=== PATIENT | female | born 1965 | race Native Hawaiian/Other Pacific Islander ===

== ENCOUNTER 2019-11-28 21:15 | Emergency (ER) | payer OTHER ==
[~2019-11-28] VITALS: Ht 162.6 cm; Wt 104.3 kg
[2019-11-28 21:36] LABS: PLATELET COUNT 273 K/uL (152-353)
[2019-11-28 21:41] LABS: POTASSIUM 3.9 mmol/L (3.6-5.2)
[2019-11-28 22:24] VITALS: BP 125/67; TEMP 98.4
[2019-11-29] MEDS ORDERED: TYLENOL325 MG PO (02:11)
[2019-11-29] MEDS ORDERED: AMLODIPINE BESYLATE PO (02:11)
[2019-11-29] MEDS ORDERED: ANBESOL MT (02:12)
[2019-11-29] MEDS ORDERED: ANTACID & ANTIG1 SUS PO (02:13)
[2019-11-29] MEDS ORDERED: ATOR20TA2 PO (02:14)
[2019-11-29] MEDS ORDERED: ASCORBIC ACD500 MG PO (02:14)
[2019-11-29] MEDS ORDERED: BASAGLAR K100 UNIT/M SC (02:15)
[2019-11-29] MEDS ORDERED: DIPH25CA90 PO (02:16)
[2019-11-29] MEDS ORDERED: DOCU100C10 PO (02:16)
[2019-11-29] MEDS ORDERED: IPRAAER INH (02:17)
[2019-11-29] MEDS ORDERED: DOXA2TAB PO (02:18)
[2019-11-29] MEDS ORDERED: DIVA500T2 PO (02:18)
[2019-11-29] MEDS ORDERED: TRULICITY1.5 MG/0.5 SC (02:19)
[2019-11-29] MEDS ORDERED: BISACODYL LAXAT10 MG RE (02:19)
[2019-11-29] MEDS ORDERED: DULOXETINE HYDR60 MG PO (02:20)
[2019-11-29] MEDS ORDERED: TRICOR145 M1 PO (02:20)
[2019-11-29] MEDS ORDERED: TAMS0.4C PO (02:21)
[2019-11-29] MEDS ORDERED: FLEET ENEMA RE (02:21)
[2019-11-29] MEDS ORDERED: ARNUITY EL50 MCG/ACT NAS (02:22)
[2019-11-29] MEDS ORDERED: NEURONTIN800 MG PO (02:23)
[2019-11-29] MEDS ORDERED: FURO40TA93 PO (02:23)
[2019-11-29] MEDS ORDERED: HYDROXYZINE HYD25 MG PO (02:24)
[2019-11-29] MEDS ORDERED: GERI-TUSSI100 MG/5 M PO (02:24)
[2019-11-29] MEDS ORDERED: JANUVIA100 MG PO (02:25)
[2019-11-29] MEDS ORDERED: LACTSYP31 PO (02:27)
[2019-11-29] MEDS ORDERED: LOPE2CAP17 PO (02:27)
[2019-11-29] MEDS ORDERED: ATIVAN2 M1 PO (02:28)
[2019-11-29] MEDS ORDERED: LOSA50TA PO (02:28)
[2019-11-29] MEDS ORDERED: CLOTCRE5 EX (02:38)
[2019-11-29] MEDS ORDERED: MELATONIN MAXIM10 MG PO (02:39)
[2019-11-29] MEDS ORDERED: METFTAB PO (02:40)
[2019-11-29] MEDS ORDERED: MAGNSUS68 PO (02:40)
[2019-11-29] MEDS ORDERED: MIRAPEX1 MG PO (02:41)
[2019-11-29] MEDS ORDERED: MOVANTIK25 MG PO (02:41)
[2019-11-29] MEDS ORDERED: MIRALAX3350 N1 PO (02:41)
[2019-11-29] MEDS ORDERED: MULT VITAMI1 PO (02:42)
[2019-11-29] MEDS ORDERED: NIACIN250 M4 PO (02:43)
[2019-11-29] MEDS ORDERED: HYDR5TAB9 PO (02:43)
[2019-11-29] MEDS ORDERED: NOVOLOG100 UNIT/M SC (02:45)
[2019-11-29] MEDS ORDERED: PALIPERIDONE ER6 MG PO (02:46)
[2019-11-29] MEDS ORDERED: POTASSIUM CHLO20 ME1 PO (02:47)
[2019-11-29] MEDS ORDERED: PROM25TA52 PO (02:47)
[2019-11-29] MEDS ORDERED: PANTOPRAZOLE 40MG TA PO (02:48)
[2019-11-29] MEDS ORDERED: TIZANIDINE HYDRO4 MG PO (02:48)
[2019-11-29] MEDS ORDERED: TRAZODONE HYDR150 MG PO (02:49)
[2019-11-29] MEDS ORDERED: TOPAMAX50 MG PO (02:49)
[2019-12-04] MEDS ORDERED: ESCI10TA PO (18:49)
[2019-12-04] MEDS ORDERED: DIVALPROEX500 MG PO (18:49)
[2019-12-04] MEDS ORDERED: CLON1TAB18 PO (18:56)
== END 2019-11-28 22:25 | disposition other institution (70) ==
LOC: ED 21:15
PROVIDERS: Student in an Organized Health Care Education/Training Program
DX: R44.0 Auditory hallucinations (principal); R44.1 Visual hallucinations; F22 Delusional disorders; Z04.6 Encounter for general psychiatric examination, requested by authority
CPT/HCPCS: 80053; 81000; 85027; 93005; 99283